=== PATIENT | male | born 1970 | race Caucasian/White ===

== ENCOUNTER 2021-10-22 18:48 | Emergency (ER) | payer OTHER, SELFPAY ==
[2021-10-22] VITALS (21 sets, daily range): BP systolic 115–150; BP diastolic 71–93; PULSE 68–117; RESP 9–31; TEMP 36.1; O2SAT 95–100
--- NOTE | 2021-10-22 18:45 | DI.RAD_ITS ---
Exam(s) XR CHEST 2V PA LATERAL EXAM: XR CHEST 2V PA LATERAL CLINICAL HISTORY: fall left side pain. TECHNIQUE: 2D digital imaging was performed. COMPARISON: No exams were available for comparison FINDINGS: Heart size is normal. The mediastinum is not widened. Lungs are clear. No infiltrates nor pleural effusions. IMPRESSION: No acute pulmonary findings. DATA REPOSITORY: RADIATION DOSE DELIVERED:
--- NOTE | 2021-10-22 18:52 | DI.CT_ITS ---
Exam(s) CT ABDOMEN PELVIS W EXAM: CT ABDOMEN PELVIS W CLINICAL HISTORY: trauma fall luq pain. TECHNIQUE: Imaging Protocol: Axial computed tomography images with coronal and sagittal reformatted images were created and reviewed CONTRAST MATERIAL: Intravenous: Omnipaque 100cc Oral: None COMPARISON: No exams were available for comparison FINDINGS: VISUALIZED LUNG BASES: No nodules nor pleural effusions evident. ABDOMEN: There is no ascites. No evidence of bowel wall nor mesenteric hematoma. LIVER: No hepatic laceration. No significant focal hepatic findings. No dilatation of intrahepatic ducts. GALLBLADDER/BILIARY: Gallbladder is partially collapsed. No obvious calculi. CBD is not dilated. PANCREAS: No evidence of pancreatic mass nor dilatation of the pancreatic duct. SPLEEN: Spleen is not enlarged. No obvious intrasplenic lesions. No splenic laceration. Splenic an d portal veins are patent. ADRENALS: There are no significant adrenal masses. KIDNEYS:No evidence of renal laceration. No subcapsular hematoma. No solid renal masses. No calcul i nor hydronephrosis.. ABDOMINAL AORTA: Intact. No aneurysm. LYMPH NODES:There is no retroperitoneal nor paraaortic adenopathy. ABDOMINAL WALL: No evidence of significant anterior abdominal wall nor inguinal hernia. GI: There is no evidence of bowel obstruction, free air, nor abscess. PELVIS: GI: No evidence of appendicitis.No evidence of sigmoid diverticulitis. LYMPH NODES: There is no intrapelvic nor inguinal adenopathy. REPRODUCTIVE: Prostate size normal. Seminal vesicles unremarkable URINARY BLADDER: Unremarkable OSSEOUS: No significant osseous lesions. No fractures evident. IMPRESSION: 1. No significant trauma sequelae in the abdomen and pelvis. 2. Visualized lung bases are clear. RADIATION DOSE DELIVERED: 690.17mGy.cm Total DLP DATA REPOSITORY: All CT scans at this facility are submitted to the National Radiology Data Registry (NRDR) Dose Index Registry (DIR) with the [employer] (ACR). RADIATION OPTIMIZATION: All CT scans at this facility use at least one of these dose optimization te chniques: automated exposure control; mA and/or kV adjustment per patient size (includes targeted exa ms where dose is matched to clinical indication); or iterative reconstruction.
--- NOTE | 2021-10-22 18:57 | W.ED.GENAD ---
Discharge Plan Disposition Patient Disposition: HOME Condition: Stable Discharge Details Clinical Impression: Concussion, Rib pain on left side Primary Care Provider: Unknown,Unknown ED Provider: Arash Victoria Home Meds and New Rx's Prescriptions: No Action alprazolam [Xanax] 0.5 mg Tablet 0.25 mg PO PRN [id number] zolpidem [Ambien] 10 mg Tablet 5 mg PO PRN [id number] Discharge Instructions Instructions: Concussion (ED), Chest Wall Pain (ED) Additional Instructions: you need to rest You may take Tylenol 650 mg every 6 hours if you have a headache Please return to the emergency department for any concerns regarding the following HPI General Date/Time Provider Initiated Documentation: 10/22/21 18:52. HPI Narrative: 51-year-old male presented to the emergency room for evaluation of left-sided abdominal discomfort following a fall. He was heading into work and slipped on the ice to his car landing the guardrail hitting the left upper aspect of his abdomen. Is complaining of left upper quadrant pain. Worse with movements and deep breathing. Was bothering him the most is he is uncomfortable nausea and vomiting that he has had since the fall. He states that he is not short of breath. No chest pain. No rib pain. No back pain. Prior to the fall that occurred approximately 5 minutes ago he was feeling fine. Severity of pain is described as moderate to severe. No radiation of the pain. Relieving factors are remaining still. Exacerbating factor changing position. Denies any head trauma. Denies any neck pain any neck trauma. Related Data Home Medications Medication Instructions Recorded Confirmed alprazolam 0.5 mg tablet (Xanax) 0.25 mg PO PRN PRN 10/22/21 10/22/21 zolpidem 10 mg tablet (Ambien) 5 mg PO PRN PRN 10/22/21 10/22/21 Allergies Allergy/AdvReac Type Severity Reaction Status Date / Time No Known Allergies Allergy Unverified 10/22/21 18:57 General Stated Complaint: Chest/Rib JUVENCIO: 2 Review of Systems Narrative: Constitutional negative. HEENT negative. Cardiovascular no palpitations, no chest pain. Respiratory no cough, GI see HPI. negative. MSK negative skin intact. Neuro no headaches. Psych negative endocrine negative hematology negative. Remote history of splenomegaly. [facility] All Active Problems (Updated 10/22/21 @ 22:16 by Arash Victoria MD) Concussion (Acute) Rib pain on left side (Acute) Social History Smoking/Tobacco Use Status: Never Smoking risk assessment performed?: Yes Alcohol Intake: never Drug use: Daily Substance use type: does not use and marijuana Exam Narrative Exam Narrative: Awake alert oriented x3. Cooperative. Mild distress. No cephalic atraumatic PERRLA EOMI anicteric Neck no midline tenderness. Supple full range of motion. Chest clear to auscultation bilaterally. No crepitus. Bilateral breath sounds Respiratory clear to auscultation bilaterally. Abdomen soft nondistended mild discomfort palpation left upper quadrant. No rebound. Back normal Skin normal no CVAT Neuro grossly intact Extremities full range of motion no deformities. Course Reevaluated patient after he had an episode of tachycardia associated with some diaphoresis., I reevaluated his heart rate is back down to normal about 5-5. Respiratory rate 16 saturations 98 with normal work of breathing. Patient informs me that he actually did not follow-up here at the hospital but fell at home around 530 with 1 at the start of his current hormone. He is currently supine that is already 7 PM and believes he has lost track sometime this evening. For this reason CT of the head is ordered although there is no sign of trauma. EKG and troponin ordered also given history of CAD Vital Signs Vital signs: Vital Signs Temperature 36.1 C L 10/22/21 18:50 Pulse 107 H 10/22/21 18:50 Respiratory Rate 31 H 10/22/21 18:50 Blood Pressure 150/93 H 10/22/21 18:50 Pulse Oximetry 99 10/22/21 18:50 Temperature 36.1 C L 10/22/21 18:50 Pulse 107 H 10/22/21 18:50 Respiratory Rate 31 H 10/22/21 18:50 Respiratory Effort 10/22/21 18:56 Blood Pressure 150/93 H 10/22/21 18:50 Blood Pressure Position Supine 10/22/21 18:50 Pulse Oximetry 99 10/22/21 18:50 Oxygen Delivery Method Room Air 10/22/21 18:50 Oxygen Flow Rate 0 10/22/21 18:50 Pain Level 4 10/22/21 18:50 Sign Out Sign Out Data: Sign Out Comment: 51-year-old gentleman. Patient diagnosed with concussion. He also has a rib contusion. Patient has second troponin pending at signout. If the second troponin is negative patient will be discharged with a diagnosis of concussion and rib contusion. Last updated by Arash Victoria MD at 10/22/21 22:59
--- NOTE | 2021-10-22 19:15 | RT.EKG_ITS ---
APPROVED REPORT Exam: Resting ECG Reason for Exam: chest pain Patient Location: E HR:94 bpm ECG Measurements Heart Rate 94 AXIS MI 144 P 31 QRSd 83 QRS 34 QT 353 T 52 QTc 443 Conclusion Sinus rhythm...normal P axis, V-rate 60- 99
--- NOTE | 2021-10-22 19:15 | DI.CT_ITS ---
Exam(s) CT HEAD WO EXAM: CT HEAD WO CLINICAL HISTORY: fall amnesia. TECHNIQUE: Imaging Protocol: Axial computed tomography images with coronal and sagittal reformatted images were created and reviewed COMPARISON: No exams were available for comparison FINDINGS: There are no skull fractures nor fluid in the visualized paranasal sinuses. There is no evidence of intracranial hemorrhage, mass effect, or shift of midline structures. There are no extra-axial fluid collections. The ventricles are not enlarged or shifted and there is no blo od within the ventricular system nor within the basal cisterns. IMPRESSION: No acute intracranial findings on this noninfused CT scan of the brain. RADIATION DOSE DELIVERED: 678.9mGy.cm Total DLP DATA REPOSITORY: All CT scans at this facility are submitted to the National Radiology Data Registry (NRDR) Dose Index Registry (DIR) with the [employer] (ACR). RADIATION OPTIMIZATION: All CT scans at this facility use at least one of these dose optimization te chniques: automated exposure control; mA and/or kV adjustment per patient size (includes targeted exa ms where dose is matched to clinical indication); or iterative reconstruction.
[2021-10-22 19:16] LABS: Abs Immature Grans 0.02 10^3/uL (0.0-0.06); Absolute Basophil Count 0.03 10^3/uL (0.0-0.2); Absolute Eosinophil Count 0.05 10^3/uL (0.0-0.7); Absolute Lymphocyte Count 1.83 10^3/uL (1.2-3.4); Absolute Monocyte Count 0.46 10^3/uL (0.1-0.8); Absolute Neutrophil Count 6.38 10^3/uL (1.2-6.7); Basophils % 0.3; Eosinophils % 0.6; HCT 51.4 % (40.0-50.0); HGB 17.5 g/dL (13.5-17.5); Immature Grans % 0.2; Lymphocytes % 20.9; MPV 9.3 fL (8.0-11.0); Monocytes % 5.2; Neutrophils % 72.8; Nucleated RBC 0 %; Platelet Count 269 10^3/uL (130-400); RBC 5.84 10^6/uL (4.36-5.78); RDW 11.9 % (11.8-14.1); RDW-SD 38.5 fL; WBC 8.77 10^3/uL (4.4-10.8)
[2021-10-22] MEDS: Normal Saline 1,000 ML 1000 ML IV (19:25)
[2021-10-22] MEDS: Ondansetron O.D.T. 4 MG TABEF PO (19:30)
[2021-10-22] MEDS: FAMOTIDINE 20 MG in Normal Saline 100 ML 400 MG IVPB (19:31)
[2021-10-22] MEDS: Omnipaque 350 MG/ML 100 ML BTL IJ (19:42)
[2021-10-22 19:56] LABS: ALT 30 U/L (16-63); AST 19 U/L (15-37); Albumin 4.9 g/dL (3.4-5.0); Alkaline Phosphatase 104 U/L (46-116); Anion Gap 12.8 mmol/L (3-11); BUN 19 mg/dL (7-18); Bilirubin, Direct 0.1 mg/dL (0.0-0.2); Bilirubin, Total 0.7 mg/dL (0.2-1.0); CO2 25.2 mmol/L (21.0-32.0); CREATININE 1.1 mg/dL (0.70-1.30); Calcium 9.8 mg/dL (8.5-10.1); Chloride 99 mmol/L (98-107); Glucose 122 mg/dL (74-106); Lipase 111 U/L (73-393); Magnesium 2.1 mg/dL (1.8-2.4); Potassium 3.6 mmol/L (3.5-5.1); Sodium 137 mmol/L (136-145); Total Protein 8.4 g/dL (6.4-8.2)
[2021-10-22 20:19] LABS: Troponin I < 50 ng/L (<or=60)
[2021-10-22 20:19] LABS: Bilirubin Negative (Negative); Blood Negative (Negative); Clarity Clear (Clear); Glucose Negative (Negative); Ketones 40 mg/dL (Negative); Leukocyte Esterase Negative (Negative); Nitrite Negative (Negative); Specific Gravity 1.015 (1.005-1.025); Urobilinogen 0.2 EU/dL (Up TO 0.2)
--- NOTE | 2021-10-22 20:21 | DI.VRAD_ITS ---
PROCEDURE INFORMATION: Exam: CT Head Without Contrast Exam date and time: 10/22/2021 7:19 PM Age: 51 years old Clinical indication: Other: Fall, amnesia TECHNIQUE: Imaging protocol: Computed tomography of the head without contrast. Radiation optimization: All CT scans at this facility use at least one of these dose optimization techniques: automated exposure control; mA and/or kV adjustment per patient size (includes targeted exams where dose is matched to clinical indication); or iterative reconstruction. COMPARISON: No relevant prior studies available. FINDINGS: Brain: No acute intracranial hemorrhage, mass-effect, midline shift, or extra-axial collection is seen. The love white matter differentiation appears preserved. Cerebral ventricles: The ventricular system and basilar cisterns appear appropriate in size and configuration. Paranasal sinuses: The visualized paranasal sinuses appear well-aerated. Mastoid air cells: The mastoid air cells appear well-aerated. Auditory system: The middle ear cavities appear clear. Orbital cavity: The globes and intraorbital structures appear grossly intact. Bones/joints: The bony calvarium appears intact. No depressed skull fracture is seen. Soft tissues: No gross focal scalp hematoma is seen. IMPRESSION: No acute intracranial hemorrhage or depressed skull fracture. Dictated and Authenticated by: Nestor Steve MD. Ordering:JOHNSON Antoine MD
[2021-10-22] MEDS: Acetaminophen 500 MG TAB (20:26)
[2021-10-22] MEDS: Ondansetron O.D.T. 4 MG TABEF (20:27)
--- NOTE | 2021-10-22 20:27 | DI.VRAD_ITS ---
PROCEDURE INFORMATION: Exam: CT Abdomen And Pelvis With Contrast Exam date and time: 10/22/2021 7:47 PM Age: 51 years old Clinical indication: Other: Trauma, fall, luq pain TECHNIQUE: Imaging protocol: Computed tomography of the abdomen and pelvis with contrast. Radiation optimization: All CT scans at this facility use at least one of these dose optimization techniques: automated exposure control; mA and/or kV adjustment per patient size (includes targeted exams where dose is matched to clinical indication); or iterative reconstruction. Contrast material: OMNIPAQUE 350; Contrast volume: 100 ml; Contrast route: INTRAVENOUS (IV); COMPARISON: CR XR CHEST 2V PA LATERAL 10/22/2021 7:50 PM FINDINGS: Lungs: Minimal platelike atelectasis at the right lung base. Liver: Normal appearing liver. Gallbladder and bile ducts: Gallbladder partially collapsed. No calcified gallstones seen. No biliary dilatation. Pancreas: Normal appearing pancreas. Spleen: Normal appearing spleen. Adrenal glands: Normal appearing adrenal glands. Kidneys and ureters: Small indeterminate hypoattenuating left renal lesion, incompletely characterized but statistically most likely a small renal cyst. Otherwise normal-appearing kidneys. No hydronephrosis. No obstructing ureteral stones. Stomach and bowel: No oral contrast. Stomach moderately distended with fluid and gas. No small bowel dilatation to suggest obstruction. Normal-appearing cecum and ascending colon. Downstream colon well evacuated of fecal material and collapsed. Apparent mural thickening through the collapsed well evacuated distal transverse colon, descending colon, sigmoid colon, and rectum. Artifact of incomplete distention? Acute proctocolitis? No evidence of focal acute diverticulitis. Mild prominence of the perirectal veins suggesting probable hemorrhoids. Appendix: Normal diminutive appendix. Intraperitoneal space: No gross ascites or free air. Vasculature: Normal caliber abdominal aorta. Lymph nodes: Scattered shotty mesenteric lymph nodes, nonspecific. Urinary bladder: Normal appearing urinary bladder. Reproductive: Normal-appearing prostate gland and seminal vesicles. Bones/joints: No acute fracture seen among the bones of the abdomen or pelvis. Soft tissues: No significant ventral or inguinal hernia. IMPRESSION: 1. No acute visceral or bony injury seen in the abdomen or pelvis. 2. Apparent mural thickening through the collapsed well evacuated distal transverse colon, descending colon, sigmoid colon, and rectum. Artifact of incomplete distention or acute proctocolitis could have this appearance. Clinical correlation is recommended. If proctocolitis is suspected clinically, infectious or inflammatory causes would be favored in this distribution. Dictated and Authenticated by: Nestor Steve MD. Ordering:JOHNSON Antoine MD
--- NOTE | 2021-10-22 20:29 | DI.VRAD_ITS ---
PROCEDURE INFORMATION: Exam: XR Chest Exam date and time: 10/22/2021 6:57 PM Age: 51 years old Clinical indication: Other: Fall, left sided pain TECHNIQUE: Imaging protocol: XR of the chest. Views: 2 views. COMPARISON: No relevant prior studies available. FINDINGS: Limitations: Rotated patient positioning. Lungs: Mild cephalization of the central hilar vasculature. No pulmonary consolidation. Pleural spaces: No pleural effusion or pneumothorax demonstrated. Heart/Mediastinum: Normal sized heart. Bones/joints: Visualized bony structures grossly intact, as seen. IMPRESSION: No active disease is seen in the chest. Dictated and Authenticated by: Nestor Steve MD. Ordering:JOHNSON Antoine MD
[2021-10-23] VITALS (26 sets, daily range): BP systolic 121–163; BP diastolic 71–86; PULSE 68–88; RESP 10–22; O2SAT 97–99
[2021-10-23 00:30] LABS: Troponin I < 50 ng/L (<or=60)
--- NOTE | 2021-10-23 00:30 | RT.EKG_ITS ---
APPROVED REPORT Exam: Resting ECG Reason for Exam: chest pain Patient Location: E HR:73 bpm ECG Measurements Heart Rate [address] 135 P 43 QRSd 92 QRS 51 QT 388 T 50 QTc 430 Conclusion Sinus rhythm...normal P axis, V-rate 60- 99 Physician: no stemi
[2021-10-23] MEDS: Ketorolac 30 MG/ML VIAL IVP (01:50)
[2021-10-23] MEDS: Normal Saline 500 ML IV (01:50)
--- NOTE | 2021-10-23 09:43 | NUR.NOTE ---
Nursing Note: Accessed pt chart to assist Ella Fisher with referrals. Carola Silva
--- NOTE | 2021-10-23 10:24 | PDOC.ERCMACT ---
- If Service Date Differs Date of service: 10/23/21 Time of Service: 10:24 Care Management Activity Note Pranav is seen in the ED for a concussion and rib pain on the left side. At the request of ED provider, SONIA coordinates a referral to Dr. Villegas, [facility], to assist Pranav in obtaining an appointment for further evaluation and treatment. The ED has already faxed a referral to [facility].
== END 2021-10-23 04:52 | disposition home or self-care (01) ==
PROVIDERS: Emergency Medicine; Emergency Provider Student in an Organized Health Care Education/Training Program
DX: S06.0X0A Concussion without loss of consciousness, initial encounter (principal); S20.212A Contusion of left front wall of thorax, initial encounter; W00.0XXA Fall on same level due to ice and snow, initial encounter; R42 Dizziness and giddiness; R93.3 Abnormal findings on diagnostic imaging of other parts of digestive tract
CPT/HCPCS: 36415; 80053; 80076; 83690; 93005; 96361; 96365; 96375; 99285; 70450; 71046; 74177; 81003; 83605; 83735; 84484; 85025; 93010; 99284; J1885; J3490

== ENCOUNTER 2022-02-03 18:45 | Outpatient (REF) | payer OTHER, SELFPAY ==
[2022-02-05 11:30] LABS: TB Interpretation Negative (Negative)
== END 2022-02-03 18:46 | disposition home or self-care (01) ==
LOC: LBN 18:45
PROVIDERS: Visit Provider Nurse Practitioner Family
DX: Z11.1 Encounter for screening for respiratory tuberculosis (principal)
CPT/HCPCS: 86480

== ENCOUNTER 2025-05-29 09:29 | Outpatient (CLI) | payer OTHER, SELFPAY ==
[2025-05-29 10:32] LABS: HCT 47.0 % (40.0-50.0); HGB 16.1 g/dL (13.5-17.5); MCH 30.8 pg (27.0-33.0); MCHC 34.3 % (32.0-36.0); MCV 90 fL (80-95); MPV 9.6 fL (8.0-11.0); Platelet Count 191 10^3/uL (130-400); RBC 5.22 10^6/uL (4.36-5.78); RDW 12.0 % (11.8-14.1); RDW-SD 39.5 fL; WBC 8.09 10^3/uL (4.4-10.8)
[2025-05-29 10:47] LABS: Hemoglobin A1C 5.7 % (<5.7)
[2025-05-29 11:27] LABS: ALT 23 U/L (16-63); AST 17 U/L (15-37); Albumin 4.1 g/dL (3.4-5.0); Alkaline Phosphatase 74 U/L (46-116); Anion Gap 11.2 mmol/L (3-11); BUN 19 mg/dL (7-18); Bilirubin, Total 0.3 mg/dL (0.2-1.0); CO2 23.8 mmol/L (21.0-32.0); Calcium 9.2 mg/dL (8.5-10.1); Calculated LDL 128 mg/dL (<100); Chloride 102 mmol/L (98-107); Cholesterol 242 mg/dL (<200); Estimated GFR 105.17 (mL/min/1.73m2); Glucose 112 mg/dL (74-106); HDL Cholesterol 66 mg/dL (>or=40); Potassium 4.2 mmol/L (3.5-5.1); Sodium 137 mmol/L (136-145); TSH (W/Ref FT4) 0.78 uIU/mL (0.36-3.74); Total Protein 7.3 g/dL (6.4-8.2); Triglyceride 241 mg/dL (<150); Vitamin B12 1002 pg/mL (193-986); Vitamin D 25 Total 72 ng/mL (30-100)
[2025-05-29 19:21] LABS: PSA, Screening 0.5 ng/mL (<=3.5)
[2025-06-04 19:31] LABS: Testosterone, Free 35.9 pg/mL (35.0-155.0)
== END 2025-05-29 09:30 | disposition home or self-care (01) ==
LOC: LBO 09:30
DX: E55.9 Vitamin D deficiency, unspecified (principal); E03.8 Other specified hypothyroidism; R41.3 Other amnesia; R53.83 Other fatigue; Z13.220 Encounter for screening for lipoid disorders
CPT/HCPCS: 36415; 80053; 80061; 82306; 82533; 84153; 84402; 84403; 85027; 82607; 83036; 84443

== ENCOUNTER 2025-06-15 14:46 | Outpatient (CLI) | payer OTHER, SELFPAY ==
[2025-06-23 17:28] LABS: Testosterone, Free 36.5 pg/mL (35.0-155.0)
== END 2025-06-15 14:47 | disposition home or self-care (01) ==
PROVIDERS: PCP Student in an Organized Health Care Education/Training Program; Visit Provider Student in an Organized Health Care Education/Training Program
DX: Z29.11 Encounter for prophylactic immunotherapy for respiratory syncytial virus (RSV) (principal); E78.5 Hyperlipidemia, unspecified; R41.3 Other amnesia; R53.83 Other fatigue
CPT/HCPCS: 36415; 84402; 84403; 82670; 84146; 84270

== ENCOUNTER 2025-08-03 09:46 | Emergency (ER) | payer OTHER, SELFPAY ==
[2025-08-03] VITALS (91 sets, daily range): BP systolic 105–166; BP diastolic 52–107; PULSE 66–113; RESP 10–24; TEMP 37; O2SAT 94–99
--- NOTE | 2025-08-03 09:45 | RT.EKG_ITS ---
APPROVED REPORT Exam: Resting ECG Reason for Exam: chest painb Patient Location: E HR:106 bpm ECG Measurements Heart Rate 106 AXIS IA 155 P 58 QRSd 89 QRS 63 QT 324 T 57 QTc 430 Conclusion Sinus tachycardia...rate> 99 No Occlusion IN
--- NOTE | 2025-08-03 09:45 | DI.RAD_ITS ---
Exam(s) XR PORTABLE CHEST AP EXAM: XR PORTABLE CHEST AP CLINICAL HISTORY: Chest pain. TECHNIQUE: 2D digital imaging was performed. COMPARISON: CR,XR XR CHEST 2V PA LATERAL from 10/22/2021 FINDINGS: Single AP portable view. Heart size is upper normal. The mediastinum is not widened. Lungs are clear. No infiltrates nor obvious pleural effusions. IMPRESSION: No acute pulmonary findings on this single AP portable view of the chest. No significant change compared to September 2021. DATA REPOSITORY: RADIATION DOSE DELIVERED:
[2025-08-03] MEDS: Aspirin 81 MG CHEW 324 MG CH (10:02)
[2025-08-03] MEDS: Normal Saline 1,000 ML 1000 ML IV (10:02)
[2025-08-03] MEDS: Ondansetron 4 MG/2 ML VIAL IVP (10:03)
[2025-08-03 10:06] LABS: Abs Immature Grans 0.05 10^3/uL (0.0-0.06); HCT 50.3 % (40.0-50.0); HGB 17.0 g/dL (13.5-17.5); Immature Grans % 0.5 %; MCH 30.0 pg (27.0-33.0); MCHC 33.8 % (32.0-36.0); MCV 89 fL (80-95); MPV 8.9 fL (8.0-11.0); Platelet Count 231 10^3/uL (130-400); RBC 5.67 10^6/uL (4.36-5.78); RDW 11.7 % (11.8-14.1); RDW-SD 37.7 fL; WBC 10.40 10^3/uL (4.4-10.8)
[2025-08-03 10:12] LABS: PTT Activated 24.6 sec (20.6-30.2)
--- NOTE | 2025-08-03 10:13 | ED.GENADUL_ITS ---
Discharge Plan Disposition Patient Disposition: Transfer-Acute Inpatient Care Specific Acute Inpt Facility: [facility] Discharge Details Clinical Impression: Angina at rest Primary Care Provider: Roma Marcos ED Provider: Edmund Bonilla Home Meds and New Rx's Prescriptions: No Action No Known Home Meds HPI General Date/Time Provider Initiated Documentation: 08/03/25 09:48 . HPI Narrative: MDM This is initially unwell appearing tachycardic and hypertensive 55-year-old male with central chest pressure worse with exertion but still present at rest concerning for unstable angina. Pressures described as squeezing so I am not concerned for aortic dissection as patient has no tearing quality to his pain so we will defer angiogram. Patient has never had a PE nor DVT and denies calf pain. As a result I am not suspicious for pulmonary embolism so I did not order a D-dimer. No rash to chest to suggest zoster. No pain out of proportion to suggest necrotizing soft tissue infection. Clear equal breath sounds and no trauma so doubt pneumothorax. Patient has no significant pericardial effusion on bedside echocardiogram and is not hypotensive nor dialysis patient making my suspicion lower for tamponade. Patient not been vomiting to suggest increased risk for esophageal rupture. No cough to suggest pneumonia. I ordered aspirin and nitroglycerin. 10:46 AM Reassuring lipase. CBC lacks anemia thrombocytopenia and leukocytosis. Reassuring comprehensive metabolic panel with no MELECIO. No acute electrolyte abnormalities nor LFT abnormalities. Normal reassuring lipase. Patient was chest pain-free and declined nitroglycerin. 2 PM I spoke [place] Matt[place] Bright [place] [facility] [place] the patient on behalf of Dr. Jimenez. She advised against clopidogrel. She recommended heparinization if patient began having chest pain at rest. I update d patient on plan of care. He denied ongoing chest pain. 4:11 PM Patient remained stable in the emergency department. He is [place] [facility] I signed patient out to Dr. Chaves with plan to initiate heparin if patient develop chest pain. Will also plan to repeat ECG. Diagnostic interpretations performed by me: Per my independent interpretation chest x-ray shows: No acute cardiopulmonary process. Per my independent interpretation EKG shows: Narrow complex sinus tachycardia rate of 106. Normal axis. Intervals within normal limits. No ST segment elevations. T wave flattening in aVL. Appears similar to prior dated 3 years ago. HPI This is a patient with a history of EKG changes presenting with chest pain and dyspnea. The patient experienced an episode of dyspnea this morning while walking into work, accompanied by chest pain. He describes the sensation as if his heart was being compressed, leading to difficulty in breathing. This was the worst instance of such symptoms, although he recalls a similar, less severe episode a few days prior. His heart rate has been consistently around 120 beats per minute, a significant increase from his usual resting rate of 68 to 70 beats per minute. Over the past three weeks, his heart rate has averaged 85 beats per minute. He reports no history of stent placement or catheterization. Approximately 7 to 8 years ago, he experienced changes in his EKG readings. He has a known family history of massive myocardial infarctions, with all male relatives having before the age of 50. His grandfather suffered a complete septal rupture. 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 Currently, he reports no pain but feels unusual. He has no history of thromboembolic events in his lower extremities or pulmonary system. He reports no febrile episodes or cough. He had a previous COVID-19 infection, after which he noticed a rapid deterioration in his health status. Exam General: Uncomfortable pale-appearing in no acute distress speaking in complete sentences. Head: Normocephalic, atraumatic. Eye: Extraocular eye movements intact. No conjunctival injection. No scleral icterus. Ear, nose, mouth, throat: Grossly normal inspection. Normal voice, handling secretions normally. Neck: Trachea midline. Cardiovascular: Well-perfused distal extremities. Regular rate and rhythm. Respiratory: Nonlabored respiration. Clear lungs bilaterally. Gastrointestinal: Nondistended abdomen. Soft. Nontender. Musculoskeletal: No significant lower extremity pitting edema. Moving all 4 extremities spontaneously. Skin: Normal for age and race, grossly normal temperature and turgor. No acute rash. Neurologic: Alert and appropriate, no apparent acute deficits. Psychiatric: Mood and manner are appropriate. Grooming and personal hygiene are appropriate. Related Data Home Medications ?Medication ?Instructions ?Recorded ?Confirmed Unknown [No Known Home Meds] 08/03/25 1 10/04/24 Allergies Allergy/AdvReac Type Severity Reaction Status Date / Time No Known Allergies Allergy Verified 08/03/25 10:12 General Stated Complaint: Chest Pain JUVENCIO: 3 Course Vital Signs Vital signs: Vital Signs Pulse 101 H 08/03/25 09:52 Respiratory Rate 19 08/03/25 09:52 Pulse Oximetry 99 08/03/25 09:52 Temperature 37 C 08/03/25 09:54 Temperature Source Oral 08/03/25 09:54 Pulse 98 H 08/03/25 10:10 Pulse 98 H 08/03/25 10:10 Respiratory Rate 20 08/03/25 10:10 Respiratory Effort Short of Breath 08/03/25 09:59 Respiratory Pattern Normal 08/03/25 09:59 Blood Pressure 135/90 08/03/25 10:01 Blood Pressure Mean 104 08/03/25 10:01 Blood Pressure Position Sitting 08/03/25 09:54 Pulse Oximetry 95 08/03/25 10:10 Oxygen Delivery Method Room Air 08/03/25 09:54 Oxygen Flow Rate 0 08/03/25 09:54 Pain Level 6 08/03/25 09:54 Lab/Test Results Lab/Test Results: Laboratory Tests Range/Units 08/03/25 09:50 WBC (4.4-10.8) 10^3/uL 10.40 RBC (4.36-5.78) 10^6/uL 5.67 Hgb (13.5-17.5) g/dL 17.0 Hct (40.0-50.0) % 50.3 H MCV (80-95) fL 89 MCH (27.0-33.0) pg 30.0 MCHC (32.0-36.0) % 33.8 RDW (11.8-14.1) % 11.7 L Plt Count (130-400) 10^3/uL 231 MPV (8.0-11.0) fL 8.9 Immature Gran % % 0.5 Neutrophils % % 68.8 Lymphocytes % % 23.6 Monocytes % % 5.0 Eosinophils % % 1.8 Basophils % % 0.3 Nucleated RBC % (0.0-0.3) % 0.0 Absolute Neutrophils (1.2-6.7) 10^3/uL 7.16 H Absolute Lymphocytes (1.2-3.4) 10^3/uL 2.45 Absolute Monocytes (0.1-0.8) 10^3/uL 0.52 Absolute Eosinophils (0.0-0.7) 10^3/uL 0.19 Absolute Basophils (0.0-0.2) 10^3/uL 0.03 PFSH All Active Problems (Updated 08/03/25 @ 12:29 by Edmund Bonilla MD) Angina at rest (Acute) Screen-bacterial dis (Acute) Social History Smoking/Tobacco Use Status: Never Smoking risk assessment performed?: Yes Alcohol Intake: never Drug use: Daily Substance use type: does not use and marijuana Housing: house Do you feel safe at home: Yes Do you feel safe in your relationship?: Yes POCUS Exam (ED) Limited Cardiac Exam DATE OF EXAM: 08/03/25 TIME OF EXAM: 10:38 PROVIDER THAT PERFORMED THE STUDY: Edmund Bonilla IS THIS A REPEAT EXAM DURING THIS ENCOUNTER: no REASON FOR EXAM: Chest pain VISUALIZED STRUCTURES: Four Chambers, Left ventricle and LVOT VIEW OBTAINED: Apical 4-Chamber, Parasternal long-axis and Subxiphoid PERTINENT FINDINGS/IMPRESSION: No pericardial effusion and No RV dilation DIFFERENTIAL DIAGNOSES: Aortic outflow track less than 4 cm, good squeeze, RV less than LV, no significant pericardial effusion. Exam complete
[2025-08-03 10:15] LABS: Lipase 98 U/L (<53); Magnesium 1.8 mg/dL (1.6-2.6)
[2025-08-03 10:17] LABS: ALT 26 U/L (10-49); AST 23 U/L (<34); Albumin 5.2 g/dL (3.2-5.0); Alkaline Phosphatase 81 U/L (46-116); Anion Gap 10.4 mmol/L (3-11); BUN 19 mg/dL (9-23); Bilirubin, Total 0.50 mg/dL (0.2-1.2); CO2 28.7 mmol/L (20.0-31.0); Calcium 10.0 mg/dL (8.3-10.6); Chloride 99 mmol/L (98-107); Glucose 108 mg/dL (74-106); Potassium 3.8 mmol/L (3.5-5.1); Sodium 138 mmol/L (136-145); Total Protein 8.2 g/dL (5.7-8.2)
--- NOTE | 2025-08-03 10:45 | RT.EKG_ITS ---
APPROVED REPORT Exam: Resting ECG Reason for Exam: Chest pain Patient Location: E HR:81 bpm ECG Measurements Heart Rate 81 AXIS CA 174 P 43 QRSd 84 QRS 45 QT 335 T 50 QTc 390 Conclusion Sinus rhythm...normal P axis, V-rate 60- 99 No Occlusion ID
[2025-08-03 10:53] LABS: Troponin I < 3 ng/L (<54)
[2025-08-03] MEDS: Midazolam 2 MG/2 ML VIAL 1 MG IVP ×4 (11:09→18:02)
[2025-08-03 11:54] LABS: Troponin I < 3 ng/L (<54)
[2025-08-03] MEDS: Atorvastatin 40 MG TAB 80 MG PO (12:34)
[2025-08-03 13:28] LABS: Troponin I 9 ng/L (<54)
--- NOTE | 2025-08-03 17:54 | ED.PROG_ITS ---
Date of service: 08/03/25 Time of Service: 17:54 Medical Decision Making Patient has remained pain-free during my shift, is feeling anxious so I did order him a dose of Versed prior to being transferred to [facility]. Discharge Plan Disposition Patient Disposition: Transfer-Acute Inpatient Care Specific Acute Inpt Facility: [facility] Discharge Details Clinical Impression: Angina at rest Primary Care Provider: Roma Marcos ED Provider: Gerry Chaves Home Meds and New Rx's Prescriptions: No Action No Known Home Meds
== END 2025-08-03 18:58 | disposition short-term general hospital (02) ==
PROVIDERS: Emergency Medicine; Emergency Provider Emergency Medicine; PCP Student in an Organized Health Care Education/Training Program
DX: I20.9 Angina pectoris, unspecified (principal)
CPT/HCPCS: 99285 ×2; 96374; 96375; 96376; 00123; 80053; 83690; 93005; 93308; 71045; 83735; 84484; 85025; 85730; 93010; J2250; J2405